=== PATIENT | male | born 1975 | race American Indian/Alaskan Native ===

== ENCOUNTER 2021-05-18 19:54 | Emergency (ER) | payer SELFPAY ==
[2021-05-18 20:03] VITALS: BP 180/100
[2021-05-18] MEDS ORDERED: SODIUM CHLORIDE 0.9% 1000 ML 1,000 ML IV ONE (23:55)
[2021-05-19 00:22] LABS: Basophils # (Auto) 0.1 K/mm3 (0.0-0.1); Basophils % (Auto) 1.7 % (0.0-1.8); Eosinophils # (Auto) 0.1 K/mm3 (0.0-0.4); Eosinophils % (Auto) 1.9 % (0.0-4.3); Hematocrit 44.6 % (35.5-45.6); Hemoglobin 14.7 gm/dl (11.8-15.2); Lymphocytes # (Auto) 1.8 K/mm3 (1.2-5.4); Mean Corpuscular HGB Conc 33 % (32-34); Mean Corpuscular Volume 77 fl (84-94); Monocytes # (Auto) 0.4 K/mm3 (0.0-0.8); Monocytes % (Auto) 7.5 % (0.0-7.3); Platelet Count 214 K/mm3 (140-440); Red Blood Count 5.81 M/mm3 (3.65-5.03); Red Cell Distribution Width 14.3 % (13.2-15.2)
[2021-05-19 00:42] LABS: Alanine Aminotransferase 12 units/L (7-56); BUN/Creatinine Ratio 10; Blood Urea Nitrogen 11 mg/dL (9-20); Hemolysis Index 15
[2021-05-19] MEDS ORDERED: SODIUM CHLORIDE 0.9% 1000 ML 1,000 ML IV ONE (00:56)
[2021-05-19] MEDS ORDERED: KETOROLAC 30 MG/1 ML INJ IV ONE (00:56)
[2021-05-19 01:14] LABS: Bilirubin,Urine NEG (Negative); Blood,Urine MOD (Negative); Color,Urine Straw (Yellow); Urobilinogen,Urine < 2.0 mg/dL (<2.0)
[2021-05-19 01:19] LABS: RBC,Urine < 1.0 /HPF (0.0-6.0)
--- NOTE | 2021-05-19 02:24 | Cat Scan Report ---
CT abdomen pelvis w con INDICATION / CLINICAL INFORMATION: Pt complains of abdominal and back pain. TECHNIQUE: Axial CT imaging of abdomen and pelvis was obtained with 100 mL Omnipaque 300 IV contrast. Coronal an d sagittal reformatted imaging obtained and reviewed. All CT scans at this location are performed us ing CT dose reduction for ALARA by means of automated exposure control. COMPARISON: None available. FINDINGS: CT abdomen with IV contrast demonstrates normal appearance of the liver, pancreas, adrenal glands, an d gallbladder. No biliary dilatation. There is a small hypodense mass along the inferior aspect of th e splenic tip measuring 2.4 cm. There is mild bilateral hydronephrosis. The ureters are dilated to the level of the bladder. No obvio us bladder mass. Therefore hydronephrosis may be due reflux, rather than true obstruction.. CT pelvis with contrast demonstrates mild enlargement of the prostate gland. Urinary bladder is promi nently distended, but no obvious bladder mass. Retrocecal appendix is visualized and is normal in maxine earance. No pelvic mass, free fluid, or focal inflammatory change noted. GI tract is unremarkable. Visualized lung bases are clear. No acute osseous abnormality. IMPRESSION: 1. Mild bilateral hydronephrosis. Ureters are dilated to the level of the urinary bladder without obv ious bladder mass or ureteral calculi 2. Mildly enlarged prostate gland.. 3. Incidental finding of small hypodense mass within the splenic tip. Statistically speaking this is most likely a benign mass Signer Name: Christiana Castillo MD Signed: 05/19/2021 2:20 AM Workstation Name: [id number]
--- NOTE | 2021-05-19 03:13 | Emergency Department Report ---
ED General Adult HPI - General Chief complaint: Hyperglycemia Stated complaint: BACK PAIN/TOOTHPAIN/HYPERGLYCEMIA Source: patient Mode of arrival: Stretcher Limitations: No Limitations - History of Present Illness Initial comments: Patient is a 45-year-old -Dominican male with a history of hypertension, pyo-xrqjpix-dflggfguy diabetes, anxiety and depression as well as bipolar disorder and was noncompliant with his medications presents to the ED with complaint of acute onset persistent generalized weakness, fatigue, diaphoresis, bilateral flank pains, low back pain, and anterior upper incisor toothache with swollen gums for the last 2 weeks worse in the last 2 days. Patient states that he has not taken his medications for hypertension and diabetes for over 3 months since he was incarcerated. Patient denies dizziness, syncope, chest pain or shortness of breath, diarrhea, dysuria, urinary frequency and urgency, fever and chills, testicular pain, hematuria or cough and headache. MD Complaint: LOW BACK PAIN, Flank pain, elevated blood sugar; dental pain -: Sudden, week(s) (2) Location: back, abdomen Radiation: non-radiation Severity scale (0 -10): 9 Quality: aching, sharp Consistency: constant Improves with: none Worsens with: movement Associated Symptoms: denies other symptoms, malaise. denies: confusion, cough, diaphoresis, fever/chills, nausea/vomiting, rash, seizure, shortness of breath, syncope, weakness, other Treatments Prior to Arrival: none - Related Data Previous Rx's Medication Instructions Recorded Last Taken Type Amoxicillin [Amoxicillin TAB] 875 mg PO Q12H #20 05/19/21 Unknown Rx Cyclobenzaprine [Flexeril] 10 mg PO TID PRN #21 05/19/21 Unknown Rx Ibuprofen [Motrin] 800 mg PO Q8HR PRN #30 tablet 05/19/21 Unknown Rx Lisinopril/Hydrochlorothiazide 1 each PO DAILY #30 05/19/21 Unknown Rx [Zestoretic 20-12.5 mg] Metformin HCl [metFORMIN] 1,000 mg PO Q12H #60 tab 05/19/21 Unknown Rx Ondansetron [Zofran Odt] 4 mg PO Q8HR PRN #15 tab.rapdis 05/19/21 Unknown Rx Allergies Allergy/AdvReac Type Severity Reaction Status Date / Time jacobson Allergy Hives Verified 05/18/21 20:02 ED Review of Systems ROS: Stated complaint: BACK PAIN/TOOTHPAIN/HYPERGLYCEMIA Other details as noted in HPI Constitutional: weakness, other (Suspect elevated blood sugar). denies: chills, fever Eyes: denies: eye pain, eye discharge, vision change ENT: dental pain (Anterior upper incisor tooth ache and swollen gums). denies: ear pain, throat pain Respiratory: denies: cough, shortness of breath, wheezing Cardiovascular: denies: chest pain, palpitations Endocrine: no symptoms reported Gastrointestinal: abdominal pain (Flank pain). denies: nausea, vomiting, diarrh ea Genitourinary: denies: urgency, dysuria Musculoskeletal: back pain (Low back pain). denies: joint swelling, arthralgia Skin: denies: rash, lesions Neurological: denies: headache, weakness, paresthesias Psychiatric: denies: anxiety, depression Hematological/Lymphatic: denies: easy bleeding, easy bruising ED Past Medical Hx - Past Medical History Previous Medical History?: Yes Hx Hypertension: Yes Hx Diabetes: Yes Hx Psychiatric Treatment: Yes (BIPOLAR,DEPRESSION) - Medications Home Medications: Home Medications Medication Instructions Recorded Confirmed Last Taken Type Amoxicillin [Amoxicillin TAB] 875 mg PO Q12H #20 05/19/21 Unknown Rx Cyclobenzaprine [Flexeril] 10 mg PO TID PRN #21 05/19/21 Unknown Rx Ibuprofen [Motrin] 800 mg PO Q8HR PRN #30 tablet 05/19/21 Unknown Rx Lisinopril/Hydrochlorothiazide 1 each PO DAILY #30 05/19/21 Unknown Rx [Zestoretic 20-12.5 mg] Metformin HCl [metFORMIN] 1,000 mg PO Q12H #60 tab 05/19/21 Unknown Rx Ondansetron [Zofran Odt] 4 mg PO Q8HR PRN #15 tab.rapdis 05/19/21 Unknown Rx ED Physical Exam - General Limitations: No Limitations General appearance: alert, in no apparent distress - Head Head exam: Present: atraumatic, normocephalic, normal inspection - Eye Eye exam: Present: normal appearance, PERRL, EOMI Pupils: Present: normal accommodation - ENT ENT exam: Present: mucous membranes moist, TM's normal bilaterally, normal external ear exam, other (Palpable tenderness on anterior incision teeth with swollen gums) - Neck Neck exam: Present: normal inspection, full ROM - Respiratory Respiratory exam: Present: normal lung sounds bilaterally. Absent: respiratory distress, wheezes, rales, stridor, chest wall tenderness, accessory muscle use, decreased breath sounds, prolonged expiratory - Cardiovascular Cardiovascular Exam: Present: regular rate, normal rhythm, normal heart sounds. Absent: systolic murmur, diastolic murmur, rubs, gallop - GI/Abdominal GI/Abdominal exam: Present: soft, tenderness (Palpable bilateral flank tenderness), normal bowel sounds. Absent: guarding, hyperactive bowel sounds, hypoactive bowel sounds, organomegaly - Extremities Exam Extremities exam: Present: normal inspection, full ROM, normal capillary refill - Back Exam Back exam: Present: normal inspection, full ROM, tenderness (Palpable lumbosacral paraspinal musculoskeletal tenderness), muscle spasm, paraspinal te nderness. Absent: CVA tenderness (L), vertebral tenderness - Neurological Exam Neurological exam: Present: alert, oriented X3, CN II-XII intact, normal gait, reflexes normal - Psychiatric Psychiatric exam: Present: normal affect, normal mood - Skin Skin exam: Present: warm, dry, intact, normal color. Absent: rash ED Course Vital Signs 05/18/21 05/19/21 20:02 01:22 Temperature 98.3 F Pulse Rate 93 H Respiratory 18 16 Rate Blood Pressure 180/100 [Left] O2 Sat by Pulse 98 Oximetry ED Medical Decision Making - Lab Data Result diagrams: 05/19/21 00:08 05/19/21 00:08 - Radiology Data [facility] [address] [place] [address] Cat Scan Report Signed Patient: MOLLY TAI MR#: [id number] : 1975 Acct:[id number] Age/Sex: 45 / M ADM Date: 05/18/21 Loc: ED Attending Dr: Ordering Physician: FRANKLIN WILLS Date of Service: 05/19/21 Procedure(s): CT abdomen pelvis w con Accession Number(s): [id number] cc: FRANKLIN WILLS CT abdomen pelvis w con INDICATION / CLINICAL INFORMATION: Pt complains of abdominal and back pain. TECHNIQUE: Axial CT imaging of abdomen and pelvis was obtained with 100 mL Omnipaque 300 IV contrast. Coronal and sagittal reformatted imaging obtained and reviewed. All CT scans at this location are performed using CT dose reduction for ALARA by means of automated exposure control. COMPARISON: None available. FINDINGS: CT abdomen with IV contrast demonstrates normal appearance of the liver, pancreas, adrenal glands, and gallbladder. No biliary dilatation. There is a small hypodense mass along the inferior aspect of the splenic tip measuring 2.4 cm. There is mild bilateral hydronephrosis. The ureters are dilated to the level of the bladder. No obvious bladder mass. Therefore hydronephrosis may be due reflux, rather than true obstruction.. CT pelvis with contrast demonstrates mild enlargement of the prostate gland. Urinary bladder is prominently distended, but no obvious bladder mass. Retrocecal appendix is visualized and is normal in appearance. No pelvic mass, free fluid, or focal inflammatory change noted. GI tract is unremarkable. Visualized lung bases are clear. No acute osseous abnormality. IMPRESSION: 1. Mild bilateral hydronephrosis. Ureters are dilated to the level of the urinary bladder without obvious bladder mass or ureteral calculi 2. Mildly enlarged prostate gland.. 3. Incidental finding of small hypodense mass within the splenic tip. Statistically speaking this is most likely a benign mass Signer Name: Christiana Castillo MD Signed: 05/19/2021 2:20 AM Workstation Name: [id number] Transcribed By: Dictated By: Christiana Castillo MD Electronically Authenticated By: Christiana Castillo MD Signed Date/Time: 05/19/21219 DD/ 0 TD/TT: - Medical Decision Making This is a 45-year-old -Dominican male with a history of hypertension, jgv-rxtgkfh-eguiqnqce diabetes, anxiety and depression as well as bipolar dis order and was noncompliant with his medications presents to the ED with complaint of acute onset persistent generalized weakness, fatigue, diaphoresis, bilateral flank pains, low back pain, and anterior upper incisor toothache with swollen gums for the last 2 weeks worse in the last 2 days. Patient states that he has not taken his medications for hypertension and diabetes for over 3 months since he was incarcerated. In the ED, patient is alert and oriented x3 and is not in any distress. Lab test results were reviewed and showed acute hyponatremia of 134 mmol/L and hyperglycemia of 350 mg/dL. Patient was treated in the ED for pain and also treated with normal saline 2 L IV bolus x1. Abdomen pelvis CT scan with contrast showed mild bilateral hydronephrosis. Ureters are dilated to the level of the urinary bladder without obvious bladder mass or ureteral calculi. It also showed mildly enlarged prostate gland.. Therer was also an incidental finding of small hypodense mass within the splenic tip. Statistically speaking this is most likely a benign mass. On reevaluation, hyperglycemia improved significantly and patient was discharged home on medications and advised to follow-up with his primary care physician in 7 to 10 days for reevaluation. Patient was advised return to the ED immediately if symptoms get worse. - Differential Diagnosis Hyperglycemia; dehydration; kidney stone; dental abscess; Critical care attestation.: If time is entered above; I have spent that time in minutes in the direct care of this critically ill patient, excluding procedure time. ED Disposition Clinical Impression: Dental abscess, Uncontrolled stage 2 hypertension, Spasm of muscle of lower back, Abdominal pain in male Hyperglycemia due to type 2 diabetes mellitus Qualifiers: Diabetes mellitus intermediate teacher insulin use: without halfway use Qualified Code(s): E11.65 - Type 2 diabetes mellitus with hyperglycemia Disposition: 01 HOME / SELF CARE / HOMELESS Is pt being admited?: No Does the pt Need Aspirin: No Condition: Stable Instructions: Diabetes Mellitus Type 2 in Adults (ED), Hypertension (ED), Insulin Treatment for Diabetes Mellitus, Dental Abscess, [id number], Type 2 Diabetes Mellitus, Self Care, Adult, [id number], Hypertension, Adult, [id number], Muscle Cramps and Spasms, [id number], Abdominal Pain, Adult, [id number] Additional Instructions: All lab test results were reviewed and are all nonactionable except for hyperglycemia which is due to your noncompliant with medications for your diabetes. Abdomen pelvis CT scan with contrast showed no acute abnormalities. Therefore take medication with food, drink plenty of fluids and follow-up with your primary care physician in 7 to 10 days for reevaluation. Return to the ED immediately if symptoms get worse. Prescriptions: Amoxicillin [Amoxicillin TAB] 875 mg PO Q12H #20 Cyclobenzaprine [Flexeril] 10 mg PO TID PRN #21 PRN Reason: Muscle Spasm Metformin HCl [metFORMIN] 1,000 mg PO Q12H #60 tab Ibuprofen [Motrin] 800 mg PO Q8HR PRN #30 tablet PRN Reason: Pain , Severe (7-10) Lisinopril/Hydrochlorothiazide [Zestoretic 20-12.5 mg] 1 each PO DAILY #30 Ondansetron [Zofran Odt] 4 mg PO Q8HR PRN #15 tab.rapdis PRN Reason: Nausea Referrals: [facility] [Provider Group] - 7-10 days Time of Disposition: 03:20 Print Language: BAHAMIAN
== END 2021-05-19 04:29 | disposition home or self-care (01) ==
LOC: ED 19:54
DX: K04.7 Periapical abscess without sinus (principal); E11.65 Type 2 diabetes mellitus with hyperglycemia; M62.830 Muscle spasm of back; R10.9 Unspecified abdominal pain; I10 Essential (primary) hypertension; F31.9 Bipolar disorder, unspecified; Z91.018 Allergy to other foods
CPT/HCPCS: 36415; 74177; 80053; 81001; 82962; 85025; 96361; 96374; 99284; J1885; J7030; Q9967; Q0162